=== PATIENT | female | born 1930 | race Caucasian/White ===

== ENCOUNTER 2020-03-15 10:00 | Outpatient (RCR) | payer MEDICARE, BC ==
[~2020-03-15 10:00] MED LIST: ASPIRIN E.C. 8181 MG PO; TYLENOL 325MG325 MG PO
== END 2020-04-09 | disposition home or self-care (01) ==
LOC: WSPT
DX: R26.89 Other abnormalities of gait and mobility (principal)

== ENCOUNTER 2020-05-22 13:00 | Outpatient (RCR) | payer MEDICARE, BC | END 2020-07-24 | disposition home or self-care (01) | LOC: WSPT | DX: R26.89 Other abnormalities of gait and mobility (principal) ==